=== PATIENT | female | born 1995 | race Caucasian/White ===

== ENCOUNTER 2018-03-24 13:22 | Emergency (ER) | payer OTHER ==
[~2018-03-24] VITALS: Ht 162.6 cm; Wt 65.3 kg
[2018-03-24] MEDS ORDERED: MAGNESIUM500 MG PO (13:31)
[2018-03-24] MEDS ORDERED: PRENATAL VITAM1 EACH PO (13:31)
[2018-03-24] MEDS ORDERED: IRON325 M1 PO (13:31)
--- NOTE | 2018-03-24 19:06 | EKG ---
[facility] [address] [facility] [place] [address] Signed Normal sinus rhythm Possible Inferior infarct , age undetermined Abnormal ECG No previous ECGs available Confirmed by SAMMIE DYER MD ([id number]) on 03/24/2018 7:06:06 PM Electronically Signed By: SAMMIE DYER MD 03/24/18 1906 PATIENT NAME: EDINSON DRAKE Electrocardiogram DATE OF : [birth year] PHYSICIAN: SAMMIE DYER MD REPORT #: [id number] REPORT IS CONFIDENTIAL AND NOT TO BE RELEASED WITHOUT AUTHORIZATION
== END 2018-03-24 18:12 | disposition home or self-care (01) ==
LOC: ED 13:22
DX: O99.89 Other specified diseases and conditions complicating pregnancy, childbirth and the puerperium (principal); R55 Syncope and collapse; O99.352 Diseases of the nervous system complicating pregnancy, second trimester; G43.809 Other migraine, not intractable, without status migrainosus; Z91.040 Latex allergy status; Z79.899 Other long term (current) drug therapy; Z3A.22 22 weeks gestation of pregnancy
CPT/HCPCS: 70551; 80053; 81001; 85025; 93005; 93010; 96360; 96361; 99284; J7030